=== PATIENT | female | born 1950 | race Two or more races ===

== ENCOUNTER → 2024-08-30 | Outpatient (CLI) | payer MEDICARE, MEDICAID, SELFPAY ==
--- NOTE | 2024-08-30 12:30 | XR_ITS ---
Examination: Breast ultrasound, unilateral, left complete Date and time of exam: August 30, 2024 1217 hours INDICATIONS: Mammogram 05/25/2024 6:00 asymmetry left breast 7.2 cm from the nipple Technique: Real-time morris scale ultrasonographic imaging performed left breast including all 4 quadrants as well as nipple retroareolar and axillary region. Findings: 3:00 cyst 6 x 4 mm 10:00 calcification 2 mm IMPRESSION: BI-RADS Category 2: Benign findings
--- NOTE | 2024-08-30 13:15 | XR_ITS ---
Examination: Diagnostic digital mammography, unilateral, left Computer aided detection 3-D breast Tomosynthesis, unilateral Date and time of exam: August 30, 2024 1243 hours INDICATIONS: Mammogram 05/25/2024 focal asymmetry left breast 6.2 cm from the nipple Technique: Nonmagnified MLO, CC views of the left breast have been obtained, reconstructed from 3-D Tomosynthesis images. R2 computer aided detection program utilized for evaluation of suspicious masses and/or abnormal calcifications. 3-D Tomosynthesis images obtained. Findings: Scattered areas of fibroglandular density No suspicious mass Ultrasound examination today demonstrates 3:00 cyst is no solid nodules Impression: BI-RADS category 2: Benign findings Return to yearly follow-up mammography
== END | disposition home or self-care (01) ==
LOC: CDIM 12:03
PROVIDERS: Referring Provider Physician Assistant; Visit Provider Physician Assistant
DX: R92.322 Mammographic fibroglandular density, left breast (principal); N64.89 Other specified disorders of breast
CPT/HCPCS: 76641; 77061; 77065; G0279